=== PATIENT | female | born 1995 | race American Indian/Alaskan Native ===

== ENCOUNTER 2017-04-07 16:59 | Emergency (ER) | payer SELFPAY ==
[2017-04-07 17:23] VITALS: BP 104/74
[2017-04-07 20:41] LABS: Bilirubin,Urine NEG (Negative); Blood,Urine NEG (Negative); Ketones,Urine NEG (Negative); Leukocyte Esterase,Urine NEG (Negative); Mucus,Urine 1+ /HPF; Nitrite,Urine NEG (Negative); Protein,Urine <15 mg/dL mg/dL (Negative); Urobilinogen,Urine < 2.0 mg/dL (<2.0)
== END 2017-04-07 22:36 | disposition left against medical advice (07) ==
LOC: ED 16:59
DX: R07.0 Pain in throat (principal); R10.9 Unspecified abdominal pain; M79.1 Myalgia; Z53.1 Procedure and treatment not carried out because of patient's decision for reasons of belief and group pressure
CPT/HCPCS: 81001

== ENCOUNTER 2018-01-22 13:35 | Emergency (ER) | payer SELFPAY ==
[2018-01-22 16:26] VITALS: BP 110/74
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
== END 2018-01-22 17:02 | disposition home or self-care (01) ==
LOC: ED 13:35
DX: S71.101A Unspecified open wound, right thigh, initial encounter (principal); W34.09XA Accidental discharge from other specified firearms, initial encounter; Y93.89 Activity, other specified; Y92.89 Other specified places as the place of occurrence of the external cause; Y99.9 Unspecified external cause status
CPT/HCPCS: 99282